=== PATIENT | male | born 1980 | race Hispanic/Latino ===

== ENCOUNTER 2020-03-04 16:20 | Emergency (ER) | payer SELFPAY ==
[2020-03-04] MEDS ORDERED: clonazePAM 0.5 MG TAB PO ONE (16:47)
--- NOTE | 2020-03-04 17:00 | Emergency Department Report ---
ED Anxiety HPI - General Chief Complaint: Chest Pain Stated Complaint: HYPERTENSION/ANXIETY Time Seen by Provider: 03/04/20 16:46 Source: patient Mode of arrival: Ambulatory - History of Present Illness Initial Comments: 39-year-old male with history of anxiety presents to ED complaining of anxiety attacks. Patient states he has been out of his clonazepam for the last 5 days. 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 Patient states he has been upset about the decision that the governor made to reopen the [facility] during this COVID pandemic. Patient reports onset of sharp chest pain today, which she reports is intermittent, only lasting a few seconds at a time. Patient reports associated nausea. He denies shortness of breath, leg pain or swelling, cough, fever. Patient states this feels like his usual anxiety attack, however he is out of his anxiety medication right now. Patient reports tobacco use, occasional alcohol use, denies drug use. Patient denies any known exposure to anyone that has tested positive for COVID-19. MD Complaint: anxiety -: This afternoon Symptoms: chest pain, sense of impending doom Place: home Previous History of Same: Yes Severity: moderate Quality: intermittant Provoking factors: work/job stress, medication change Improves With: medication Associated symptoms: chest pain, nausea/vomiting. denies: shortness of breath, cough, fever/chills - Related Data Home Medications: Previous Rx's Medication Instructions Recorded Last Taken Type clonazePAM [KlonoPIN] 2 mg PO BID PRN #14 tablet 03/04/20 Unknown Rx Allergies/Adverse Reactions: Allergies Allergy/AdvReac Type Severity Reaction Status Date / Time No Known Allergies Allergy Unverified 03/04/20 16:47 ED Review of Systems ROS: Stated complaint: HYPERTENSION/ANXIETY Other details as noted in HPI Comment: All other systems reviewed and negative Constitutional: denies: fever Respiratory: denies: cough, shortness of breath Cardiovascular: chest pain Gastrointestinal: nausea. denies: vomiting ED Past Medical Hx - Social History Smoking Status: Current Every Day Smoker Substance Use Type: Alcohol - Medications Home Medications: Home Medications Medication Instructions Recorded Confirmed Last Taken Type clonazePAM [KlonoPIN] 2 mg PO BID PRN #14 tablet 03/04/20 Unknown Rx ED Physical Exam - General Limitations: No Limitations General appearance: alert, in no apparent distress, anxious - Head Head exam: Present: atraumatic, normocephalic - Eye Eye exam: Present: normal appearance, EOMI - ENT ENT exam: Present: mucous membranes moist - Neck Neck exam: Present: normal inspection - Respiratory Respiratory exam: Present: normal lung sounds bilaterally. Absent: respiratory distress - Cardiovascular Cardiovascular Exam: Present: regular rate, normal rhythm - GI/Abdominal GI/Abdominal exam: Present: soft. Absent: distended, tenderness - Extremities Exam Extremities exam: Present: normal inspection - Neurological Exam Neurological exam: Present: alert, oriented X3, CN II-XII intact. Absent: motor sensory deficit - Psychiatric Psychiatric exam: Present: anxious - Skin Skin exam: Present: warm, dry, intact, normal color ED Course Vital Signs 03/04/20 03/04/20 03/04/20 16:35 16:36 16:40 Temperature 99 F 99 F Pulse Rate 95 H 86 Respiratory 12 12 12 Rate Blood Pressure 146/100 Blood Pressure 146/100 [Right] O2 Sat by Pulse 98 98 Oximetry - Reevaluation(s) Reevaluation #1: 03/04/20 18:18 Pt feeling much better after taking the Klonopin. ED Medical Decision Making - Lab Data Result diagrams: 03/04/20 16:46 03/04/20 16:46 - EKG Data -: EKG Interpreted by Me EKG shows normal: sinus rhythm, axis, intervals, QRS complexes, ST-T waves Rate: normal - EKG Data Interpretation: no acute changes - Radiology Data Radiology results: report reviewed, image reviewed - Medical Decision Making 39-year-old male presents to ED with chest pain and anxiety. Patient reports this pain is typical whenever he has an anxiety attack. Patient reports he has been out of his Klonopin for the last 5 days. EKG and troponin are unremarkable. Chest x-ray is normal. After receiving Klonopin, patient symptoms have resolved. He states he no longer feels shaky or worried. Chest pain has been relieved. I will give patient a prescription for 1 week of Klonopin. Outpatient follow-up advised. Return precautions given. - Differential Diagnosis anxiety, ACS, pneumonia Critical care attestation.: If time is entered above; I have spent that time in minutes in the direct care of this critically ill patient, excluding procedure time. ED Disposition Clinical Impression: Anxiety, Chest pain Disposition: DC-01 TO HOME OR SELFCARE Is pt being admited?: No Condition: Stable Instructions: Chest Pain (ED), Anxiety (ED) Prescriptions: clonazePAM [KlonoPIN] 2 mg PO BID PRN #14 tablet PRN Reason: Anxiety Referrals: [facility] [Provider Group] - 3-5 Days PRIMARY CARE, [Referring] - 3-5 Days Time of Disposition: 18:11
[2020-03-04 17:09] LABS: Basophils % (Auto) 0.4 % (0.0-1.8); Eosinophils % (Auto) 0.3 % (0.0-4.3); Hematocrit 47.8 % (35.5-45.6); Hemoglobin 16.6 gm/dl (11.8-15.2); Lymphocytes # (Auto) 1.1 K/mm3 (1.2-5.4); Lymphocytes % (Auto) 11.1 % (13.4-35.0); Mean Corpuscular HGB Conc 35 % (32-34); Mean Corpuscular Volume 99 fl (84-94); Monocytes # (Auto) 0.8 K/mm3 (0.0-0.8); Monocytes % (Auto) 7.8 % (0.0-7.3); Platelet Count 235 K/mm3 (140-440); Red Blood Count 4.82 M/mm3 (3.65-5.03); Red Cell Distribution Width 12.3 % (13.2-15.2)
--- NOTE | 2020-03-04 17:12 | XRay Report ---
CHEST 1 VIEW INDICATION / CLINICAL INFORMATION: chest pain. COMPARISON: None available. FINDINGS: SUPPORT DEVICES: None. HEART / MEDIASTINUM: No significant abnormality. LUNGS / PLEURA: No significant pulmonary or pleural abnormality. No pneumothorax. ADDITIONAL FINDINGS: No significant additional findings. IMPRESSION: 1. No acute findings. Signer Name: Isaiah Pressley MD Signed: 03/04/2020 5:07 PM Workstation Name: [id number]
[2020-03-04 17:31] LABS: BUN/Creatinine Ratio 12; Blood Urea Nitrogen 11 mg/dL (9-20); Calcium 10.1 mg/dL (8.4-10.2); Hemolysis Index 11
[2020-03-04 18:36] VITALS: BP 138/89
== END 2020-03-04 18:37 | disposition home or self-care (01) ==
LOC: ED 16:20
DX: F41.9 Anxiety disorder, unspecified (principal); R07.89 Other chest pain; F17.200 Nicotine dependence, unspecified, uncomplicated; Z79.899 Other long term (current) drug therapy
CPT/HCPCS: 36415; 71045; 80048; 84484; 85025; 93005